=== PATIENT | male | born 1950 | race Caucasian/White ===

== ENCOUNTER 2022-07-18 11:53 | Emergency (ER) | payer MEDICARE, OTHER, SELFPAY ==
[2022-07-18 11:53] VITALS: BP 77/49; PULSE 75; RESP 16; O2SAT 90; BMI 30.4
--- NOTE | 2022-07-18 11:58 | XRR_ITS ---
PROCEDURE INFORMATION: Exam: XR Chest Exam date and time: 07/18/2022 12:09 PM Age: 71 years old Clinical indication: Other: Syncope TECHNIQUE: Imaging protocol: Radiologic exam of the chest. Views: 1 view. Total images: 1197 COMPARISON: No relevant prior studies available. FINDINGS: Lungs: Unremarkable. No consolidation. Pleural spaces: Unremarkable. No pleural effusion. No pneumothorax. Heart/Mediastinum: Unremarkable. No cardiomegaly. Bones/joints: Unremarkable. XR/XR chest 1V portable 14113 IMPRESSION: No acute findings.
[2022-07-18 12:02] VITALS: BP 99/52; PULSE 83; RESP 21; O2SAT 96
[2022-07-18] MEDS: sodium chloride 0.9% 1,000 ML 999 ML IV (12:05)
[2022-07-18 12:14] LABS: Basophils % 0.5 %; Eosinophils # 0.1 10^3/uL (0.0-0.8); Eosinophils % 1.7 %; Hematocrit 43.4 % (42.0-52.0); Lymphocytes # 2.6 10^3/uL (0.8-4.8); Lymphocytes % 32.6 %; Mean Corpuscular HGB Conc 34.6 g/dL (30.0-36.0); Mean Corpuscular Hemoglobin 31.4 pg (28.0-34.0); Mean Platelet Volume 11.5 fL (7.4-10.4); Monocytes # 0.6 10^3/uL (0.2-0.9); Monocytes % 7.7 %; Neutrophils % 57.1 %; Nucleated Red Blood Cells % 0 %; Platelet Count 289 10^3/cmm (130-400); Red Blood Count 4.77 10^6/uL (4.1-5.3); Red Cell Distribution Width 11.9 % (12.1-15.1); White Blood Count 8.1 10^3/uL (4.0-10.0)
--- NOTE | 2022-07-18 12:18 | W.ED.SYNCOPE ---
HPI - Syncope General: Chief Complaint: Syncope Stated Complaint: syncope Time Seen by Provider: 07/18/22 11:58 History of Present Illness: 71-year-old male presenting today with syncope. 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 Sweating profusely which is his baseline. He took his morning medicines. Including a metoprolol and lisinopril. Stated he felt like he had to go to the restroom. Went to the restroom. Then started to feel like he was going to pass out. Which point he fell to the ground. Did not strike his head. Is not on blood thinners. Upon EMS arrival patient with a low blood pressure and low heart rate. Attempted atropine with minimal improvement. Patient denies a complete review of systems otherwise. He notes no prior history of similar. Symptoms are gradually improving. Review of Systems General: Reports: 10 or more systems reviewed and unremarkable except in HPI and below Physical Exam Const: COMMON NORMALS: no acute distress, patient oriented x3 and alert GENERAL APPEARANCE: cooperative ORIENTATION/CONSCIOUSNESS: Yes awake, Yes oriented to person, Yes oriented to place and Yes oriented to time HENMT: COMMON NORMALS: normocephalic, atraumatic, external ears normal, Normal external nose present and moist oral mucous membranes HEAD & SCALP: normal to inspection, normocephalic and atraumatic NOSE: Normal external nose present GENERAL EAR: hearing grossly impaired EXTERNAL EAR: Yes external ears normal Eye: COMMON NORMALS: Equal, round and reactive pupils present, EOMs intact bilaterally, conjunctivae normal and no scleral icterus GENERAL EYE: appearance normal, both eyes and all related structures EYELID: eyelids normal CONJUNCTIVA: Yes conjunctivae normal SCLERA: sclerae normal PUPIL: Yes Equal, round and reactive pupils present Neck/C-Spine: COMMON NORMALS: full ROM, supple and no JVD GENERAL: Yes normal visual inspection Lymph: LYMPHATIC: no lymphadenopathy noted and no lymphedema noted Chest: COMMONS NORMALS: normal inspection of the chest Resp: COMMON NORMALS: normal respiratory effort, No retractions and No use of accessory muscles Cardio: COMMON NORMALS: no JVD, regular rate and regular rhythm RATE: regular rate RHYTHM: regular rhythm GI: COMMON NORMALS: Normal to inspection, nondistended, normoactive bowel sounds present : COMMON NORMALS: Yes no CVA tenderness BLADDER/KIDNEY EXAM: Yes no CVA tenderness Back/Pelvis: COMMON NORMALS: no CVA tenderness and thoracic and lumbar spine normal to inspection Extremity: COMMON NORMALS: normal to inspection, full ROM and capillary refill normal GENERAL: Yes normal exam except as noted Neuro: COMMON NORMALS: patient oriented x3, CN's II-XII intact bilaterally, moves all extremities, no focal motor deficits, no sensory deficits noted and gait normal SENSORIUM/ORIENTATION: Yes alert, Yes oriented to person, Yes oriented to place and Yes oriented to time Psych: COMMON NORMALS: mental status grossly normal, Normal thought process present, cooperative and normal affect THOUGHT PROCESS: Normal thought process present Skin: COMMON NORMALS: no rashes or lesions noted and no wounds GENERAL SKIN EXAM: no rashes or lesions noted Course Vital Signs: Vital signs: Vital Signs Pulse Rate 78 07/18/22 12:24 Respiratory Rate 18 07/18/22 12:24 Blood Pressure 105/59 07/18/22 12:24 Pulse Oximetry 98 07/18/22 12:24 Oxygen Delivery Me thod 07/18/22 12:24 Oxygen Flow Rate 2 07/18/22 12:24 MDM - Syncope Medical Decision Making 71-year-old male presenting today with syncope low blood pressure low heart rate. Patient on beta-james. Atropine was ineffective. Patient given a milligram of glucagon with improvement in blood pressure and heart rate. Patient bolused 2 L normal saline with consistent improvement in blood pressure. Symptoms appear to be consistent with heat exhaustion. CMP with minor renal insufficiency. CBC is unremarkable. CK is within normal limits. Troponin within normal limits. Patient with complete return to baseline after 2 L normal saline. Patient was given strict return precautions and recommended outpatient follow-up. Lab Data : 07/18/22 12:00 07/18/22 12:00 Radiology Impressions Chest X-Ray 07/18/22 11:58 IMPRESSION: No acute findings. Laboratory Results WBC 8.1 10^3/uL (4.0-10.0) 07/18/22 12:00 RBC 4.77 10^6/uL (4.1-5.3) 07/18/22 12:00 Hgb 15.0 g/dL (11.7-16.6) 07/18/22 12:00 Hct 43.4 % (42.0-52.0) 07/18/22 12:00 MCV 91.0 fl (80-94) 07/18/22 12:00 MCH 31.4 pg (28.0-34.0) 07/18/22 12:00 MCHC 34.6 g/dL (30.0-36.0) 07/18/22 12:00 RDW 11.9 % (12.1-15.1) L 07/18/22 12:00 Plt Count 289 10^3/cmm (130-400) 07/18/22 12:00 MPV 11.5 fL (7.4-10.4) H 07/18/22 12:00 Neut % (Auto) 57.1 % 07/18/22 12:00 Lymph % (Auto) 32.6 % 07/18/22 12:00 [place] % (Auto) 7.7 % 07/18/22 12:00 Eos % (Auto) 1.7 % 07/18/22 12:00 Baso % (Auto) 0.5 % 07/18/22 12:00 Neut # (Auto) 4.60 10^3/uL (1.8-7.7) 07/18/22 12:00 Lymph # (Auto) 2.6 10^3/uL (0.8-4.8) 07/18/22 12:00 [place] # (Auto) 0.6 10^3/uL (0.2-0.9) 07/18/22 12:00 Eos # (Auto) 0.1 10^3/uL (0.0-0.8) 07/18/22 12:00 Baso # (Auto) 0.0 10^3/uL (0.0-0.1) 07/18/22 12:00 Nucleated RBC % (auto) 0 % 07/18/22 12:00 Nucleated RBCs # 0.0 /100WBC 07/18/22 12:00 Sodium 144 mmol/L (136-145) 07/18/22 12:00 Potassium 4.1 mmol/L (3.5-5.1) 07/18/22 12:00 Chloride 104 mmol/L (98-107) 07/18/22 12:00 Carbon Dioxide 24 mmol/L (22-29) 07/18/22 12:00 Anion Gap 20.1 (5-19) H 07/18/22 12:00 BUN 26 mg/dL (8-23) H 07/18/22 12:00 Creatinine 1.4 mg/dL (0.7-1.2) H 07/18/22 12:00 GFR Calculation Not Reportable 07/18/22 12:00 Glucose 139 mg/dL (65-115) H 07/18/22 12:00 Calculated Osmolality 305 mOsm/kg (285-295) H 07/18/22 12:00 Calcium 9.9 mg/dL (8.5-10.5) 07/18/22 12:00 Total Bilirubin 0.5 mg/dL (0.15-1.2) 07/18/22 12:00 AST 19 U/L (0-40) 07/18/22 12:00 ALT 27 U/L (0-41) 07/18/22 12:00 Alkaline Phosphatase 85 U/L (40-130) 07/18/22 12:00 Creatine Kinase 90 U/L (39-308) 07/18/22 12:00 Troponin T Baseline 8 ng/L (0-15) 07/18/22 12:00 Total Protein 7.4 g/dL (6.6-8.7) 07/18/22 12:00 Albumin 4.7 g/dL (3.5-5.2) 07/18/22 12:00 Globulin 2.7 g/dL (1.3-4.6) 07/18/22 12:00 Discharge Plan Discharge Patient Disposition: Home Clinical Impression: Vasovagal syncope, Heat exhaustion Condition: Stable Prescriptions: No Action lisinopril-hydrochlorothiazide 20-12.5 mg tablet 1 tab PO QAM metoprolol tartrate 100 mg tablet 50 mg PO QAM tamsulosin 0.4 mg capsule 0.4 mg PO DAILY@10 simvastatin 20 mg tablet 10 mg PO QAM Vitamin D3 125 mcg (5,000 unit) Tablet 125 mcg PO DAILY Discharge Orders: Discharge ED (Routine); Ordered 07/18/22 Ordered By: Sang Aguayo Discharge Diet: Advance as tolerated Discharge Activity: Limit activity as instructed Patient Instructions: Heat Exhaustion - Adult, Dehydration (ED) Coding Level of Care Code ED [employer] for Chg Fwd Exam Comprehensive
--- NOTE | 2022-07-18 12:23 | PC.PHAR ---
pt and pts verified pts medications-states the pt cuts the metoprolol tartrate 100mg tab in half to make 50mg daily-and cuts the zocor 20mg tab in half to make 10mg daily-
[2022-07-18 12:24] VITALS: BP 105/59; PULSE 78; RESP 18; O2SAT 98
[2022-07-18 12:32] VITALS: BP 117/66; PULSE 82; RESP 16; O2SAT 99
[2022-07-18 12:43] LABS: Troponin(5th) Baseline 8 ng/L (0-15)
[2022-07-18 12:45] LABS: Alanine Aminotransferase 27 U/L (0-41); Albumin Level 4.7 g/dL (3.5-5.2); Alkaline Phosphatase 85 U/L (40-130); Anion Gap 20.1 (5-19); Aspartate Amino Transferase 19 U/L (0-40); Blood Urea Nitrogen 26 mg/dL (8-23); Calcium 9.9 mg/dL (8.5-10.5); Carbon Dioxide 24 mmol/L (22-29); Chloride 104 mmol/L (98-107); Creatine Phosphokinase 90 U/L (39-308); Globulin 2.7 g/dL (1.3-4.6); Glucose 139 mg/dL (65-115); Osmolality Calculated 305 mOsm/kg (285-295); Potassium 4.1 mmol/L (3.5-5.1); Sodium 144 mmol/L (136-145); Total Bilirubin 0.5 mg/dL (0.15-1.2); Total Protein 7.4 g/dL (6.6-8.7)
[2022-07-18 12:47] VITALS: BP 106/60; PULSE 83; RESP 18; O2SAT 100
[2022-07-18 12:59] VITALS: BP 118/67; PULSE 79; RESP 16; O2SAT 98
== END 2022-07-18 13:10 | disposition home or self-care (01) ==
PROVIDERS: Emergency Provider Emergency Medicine
DX: R55 Syncope and collapse (principal); T67.5XXA Heat exhaustion, unspecified, initial encounter; X30.XXXA Exposure to excessive natural heat, initial encounter
CPT/HCPCS: 71045; 80053; 82550; 84484; 85025; 96361; 96374; 99285; J1610; J7030